=== PATIENT | male | born 1995 | race African-American/Black ===

== ENCOUNTER 2017-02-02 14:19 | Emergency (ER) | payer MEDICAID ==
[~2017-02-02] VITALS: Ht 193 cm; Wt 86.2 kg
[2017-02-02 14:24] VITALS: BP 119/69; PULSE 54; RESP 20; TEMP 98.4; O2SAT 99
--- NOTE | 2017-02-02 14:29 | NUR ---
Pt placed to ER bed 03, to bishnu, report given to ARMANDO Jewell.
--- NOTE | 2017-02-02 14:32 | NUR ---
Patient complaining of left pelvis pain x 4-5 days. Denies any trauma to the area. Denies N/V/D. No other complaints/injuries per patient of as noted. Will continue to monitor.
--- NOTE | 2017-02-02 14:42 | NUR ---
Dary valdes in ED - 02/02/17 at 1535 by [email or web address] MEDICINE WORKER at bedside examining patient.
--- NOTE | 2017-02-02 14:42 | NUR ---
EFFIE Whelan at bedside examining patient.
[2017-02-02] MEDS ORDERED: KETOROLAC TROMETHAMINE 30 MG VIAL IVP ONE (14:45)
[2017-02-02] MEDS ORDERED: NACL 0.9% 1,000 ML IV ONE (14:45)
[2017-02-02 15:06] LABS: BILIRUBIN,URINE NEGATIVE (NEGATIVE); BLOOD, URINE NEGATIVE (NEGATIVE); CLARITY/URINE CLEAR (CLEAR); COLOR,URINE YELLOW (YELLOW); GLUCOSE,URINE NEGATIVE (NEGATIVE); KETONES,URINE NEGATIVE (NEGATIVE); LEUKOCYTE ESTERASE ,URINE NEGATIVE (NEGATIVE); NITRITE, URINE NEGATIVE (NEGATIVE); PROTEIN URINE NEGATIVE (NEGATIVE); UROBILINOGEN,URINE 0.2 (0.2-1.0)
--- NOTE | 2017-02-02 15:32 | NUR ---
Patient resting quietly. No acute distress noted. Vital signs within normal range.
[2017-02-02 15:44] LABS: BASOPHILS % (AUTO) 0.6 % (0.0-2.0); EOSINOPHILS # (AUTO) 0.1 K/uL (0.0-0.4); HEMATOCRIT 44.9 % (36-54); HEMOGLOBIN 14.4 g/dL (14.0-18.0); LYMPHOCYTES # (AUTO) 3.5 K/uL (1.0-5.5); LYMPHOCYTES % (AUTO) 57.6 % (20.5-51.5); MEAN CORPUSCULAR HEMOGLOBIN 28 pg (27-31); MEAN CORPUSCULAR HGB CONC 32 % (32-36); MEAN CORPUSCULAR VOLUME 88 fL (79.0-98.0); MONOCYTES # (AUTO) 0.7 K/uL (0.0-1.0); MONOCYTES % (AUTO) 11.9 % (1.7-9.3); NEUTROPHILS # (AUTO) 1.6 K/uL (1.8-7.7); NEUTROPHILS % (AUTO) 27.9 % (40.0-70.0); RED BLOOD CELL COUNT(AUTO) 5.09 MIL/uL (4.2-6.2); RED CELL DISTRIBUTION WIDTH 11.4 % (9.0-15.0); WHITE BLOOD COUNT (AUTO) 5.9 K/uL (4.5-11.0)
[2017-02-02 15:47] LABS: PLATELET COUNT (AUTO) 368 K/uL (130-430)
[2017-02-02 15:53] LABS: CALCIUM 9.1 mg/dL (8.4-11.0); CREATININE 1.07 mg/dL (0.55-1.30); POTASSIUM 4.1 mmol/L (3.5-5.1)
[2017-02-02 15:59] LABS: TOTAL BILIRUBIN 0.4 mg/dL (0.0-1.0)
[2017-02-02] MEDS ORDERED: MAGNESIUM CITRATE 300 ML ORAL SOLUTION PO ONE (16:15)
[2017-02-02 16:26] VITALS: BP 119/69; PULSE 54; RESP 20; TEMP 98.4; O2SAT 99
--- NOTE | 2017-02-02 16:26 | NUR ---
Patient given written and verbal discharge instructions and verbalizes understanding. ER MD discussed with patient the results and treatment provided. Patient in stable condition. ID arm band removed. IV catheter removed intact and dressing applied, no active bleeding. Rx of Miralax given. Patient sent home with Magnesium Citrate. Patient educated on pain management and to follow up with PMD in 2-3 days. Pain Scale 0/10 Opportunity for questions provided and answered.
== END 2017-02-02 16:26 | disposition home or self-care (01) ==
LOC: SED 14:19
DX: K59.00 Constipation, unspecified (principal)
CPT/HCPCS: 36415; 74176; 80053; 81003; 85025; 96361; 96374; 99285; J1885; J7030

== ENCOUNTER 2018-09-11 17:56 | Emergency (ER) | payer MEDICAID ==
[~2018-09-11] VITALS: Ht 193 cm; Wt 86.2 kg
[2018-09-11 17:56] VITALS: BP_SYST 132
[2018-09-11 18:58] VITALS: BP_SYST 132
== END 2018-09-11 18:58 | disposition home or self-care (01) ==
LOC: SED 17:56
DX: F40.11 Social phobia, generalized (principal); F32.9 Major depressive disorder, single episode, unspecified
CPT/HCPCS: 99283

== ENCOUNTER 2018-11-28 02:11 | Emergency (ER) | payer MEDICAID ==
[~2018-11-28] VITALS: Ht 182.9 cm; Wt 83.9 kg
[2018-11-28 02:26] VITALS: BP_SYST 124
[2018-11-28] MEDS ORDERED: KETOROLAC TROMETHAMINE 30 MG VIAL IM ONE (02:45)
[2018-11-28] MEDS ORDERED: DIPH-TET-PERTUS Vaccine 0.5 ML VIAL (ADACEL) I.M. ONE (02:45)
[2018-11-28] MEDS ORDERED: BACITRACIN 1 GM OINT TP ONE (03:37)
[2018-11-28 03:38] VITALS: BP_SYST 122
== END 2018-11-28 03:41 | disposition home or self-care (01) ==
LOC: SED 02:11
DX: S16.1XXA Strain of muscle, fascia and tendon at neck level, initial encounter (principal); S39.012A Strain of muscle, fascia and tendon of lower back, initial encounter; S70.212A Abrasion, left hip, initial encounter; S70.211A Abrasion, right hip, initial encounter; S80.212A Abrasion, left knee, initial encounter; R03.0 Elevated blood-pressure reading, without diagnosis of hypertension; F41.9 Anxiety disorder, unspecified; F32.9 Major depressive disorder, single episode, unspecified; V89.2XXA Person injured in unspecified motor-vehicle accident, traffic, initial encounter; Y93.89 Activity, other specified; Y92.410 Unspecified street and highway as the place of occurrence of the external cause; Y99.8 Other external cause status
CPT/HCPCS: 72040; 72100; 90471; 90715; 96372; 99283; J1885

== ENCOUNTER 2019-04-19 10:17 | Emergency (ER) | payer MEDICAID ==
[~2019-04-19] VITALS: Ht 193 cm; Wt 86.2 kg
[2019-04-19 10:34] VITALS: BP_SYST 124
--- NOTE | 2019-04-19 11:05 | NUR ---
Patient to ER bed 08 for evaluation. Side rails up.
--- NOTE | 2019-04-19 11:22 | NUR ---
ER Dr. Tsang at bedside examining patient.
--- NOTE | 2019-04-19 11:24 | NUR ---
Pt moved to bed 05
--- NOTE | 2019-04-19 11:30 | NUR ---
Pt AAOx4 ambulated into ED c/o L ear pain x 1-2 weeks. Denies discharge/bleeding from site. No swelling noted. Denies taking medication for pain. No other injuries/complaints per pt/noted. Will continue to monitor.
--- NOTE | 2019-04-19 12:40 | NUR ---
Patient eloped without speaking to any staff.
== END 2019-04-19 12:40 | disposition left against medical advice (07) ==
LOC: SED 10:17
DX: H92.02 Otalgia, left ear (principal); F41.9 Anxiety disorder, unspecified
CPT/HCPCS: 99281

== ENCOUNTER 2019-08-20 21:05 | Emergency (ER) | payer MEDICAID ==
[~2019-08-20] VITALS: Ht 193 cm; Wt 81.6 kg
--- NOTE | 2019-08-20 21:10 | NUR ---
Patient to ER bed 03 to gown for evaluation. Side rails up.
--- NOTE | 2019-08-20 21:12 | NUR ---
ED Kwaw at bedside for patient evaluation.
[2019-08-20 21:15] VITALS: BP_SYST 143
--- NOTE | 2019-08-20 21:15 | NUR ---
Patient AOx4, ambulatory, presents to ED with complaint of panic attack. Patient states he was parked outside of his house and began to feel anxious. Patient reports being a lot of stress lately. Patient has hx of anxiety. Reports having a similar episode in the past for which Ativan was given and effective. Patient was in the process of a referral for psych evaluation but did not follow-up. Patient reports he does not have SI at this time.
[2019-08-20] MEDS: LORazepam 1 MG TABLET PO ONE (21:29)
--- NOTE | 2019-08-20 22:00 | NUR ---
No adverse reactions noted post medication administration. Will continue to monitor.
[2019-08-20 22:28] VITALS: BP_SYST 129
--- NOTE | 2019-08-20 22:28 | NUR ---
Patient given written and verbal discharge instructions and verbalizes understanding. ER MD discussed with patient the results and treatment provided. Patient in stable condition. ID arm band removed. no Rx given. Patient educated on pain management and to follow up with PMD. Pain Scale 0/10. Opportunity for questions provided and answered.
== END 2019-08-20 22:28 | disposition home or self-care (01) ==
LOC: SED 21:05
DX: F41.9 Anxiety disorder, unspecified (principal); R06.4 Hyperventilation
CPT/HCPCS: 99283

== ENCOUNTER 2019-10-28 22:51 | Emergency (ER) | payer MEDICAID ==
[~2019-10-28] VITALS: Ht 193 cm; Wt 81.6 kg
[2019-10-28 22:55] VITALS: BP_SYST 109
[2019-10-29 00:14] VITALS: BP_SYST 125
== END 2019-10-29 00:14 | disposition home or self-care (01) ==
LOC: SED 22:51
DX: H61.22 Impacted cerumen, left ear (principal); H60.92 Unspecified otitis externa, left ear; F41.9 Anxiety disorder, unspecified
CPT/HCPCS: 99283

== ENCOUNTER 2022-09-15 18:01 | Emergency (ER) | payer MEDICAID ==
[~2022-09-15] VITALS: Ht 193 cm; Wt 90.7 kg
[2022-09-15 18:02] VITALS: BP_SYST 109
--- NOTE | 2022-09-15 18:07 | NUR ---
Patient triaged and placed in waiting room. VSS and patient appears in no acute distress at this time. Accompanied by SELF, awaiting available bed, and MD notified of need for MSE.
--- NOTE | 2022-09-15 18:20 | NUR ---
PT STATES ON AND OFF CONSTIPATION DUE TO MEDICATION GIVEN FOR INJURY TO ABD MUSCLES. PT STATES RECTAL PAIN, SMALL AMT OF BLOOD NOTED TO TOILET PAPER WHEN WIPING, DENIES ANY INJURY OR TRAUMA TO RECTUM. PT STATES LAST NORMAL BM WAS "WEEKS AGO". STATES HE STARTED TAKING METAMUCIL YESTERDAY, BLOATING
[2022-09-15] MEDS ORDERED: KETOROLAC TROMETHAMINE 30 MG VIAL IVP ONE (20:00)
[2022-09-15] MEDS ORDERED: KETOROLAC TROMETHAMINE 60 MG/2 ML VIAL IM ONE (20:15)
[2022-09-15 20:16] LABS: BASOPHILS # (AUTO) 0.1 K/uL (0.0-0.2); BASOPHILS % (AUTO) 0.8 % (0.0-2.0); EOSINOPHILS # (AUTO) 0.1 K/uL (0.0-0.4); EOSINOPHILS % (AUTO) 0.8 % (0.0-4.0); HEMATOCRIT 40.5 % (36-54); HEMOGLOBIN 13.7 g/dL (14.0-18.0); LYMPHOCYTES # (AUTO) 2.7 K/uL (1.0-5.5); LYMPHOCYTES % (AUTO) 33.6 % (20.5-51.5); MEAN CORPUSCULAR HEMOGLOBIN 30 pg (27-31); MEAN CORPUSCULAR HGB CONC 34 % (32-36); MEAN CORPUSCULAR VOLUME 88 fL (79.0-98.0); MONOCYTES # (AUTO) 0.9 K/uL (0.0-1.0); MONOCYTES % (AUTO) 11.8 % (1.7-9.3); NEUTROPHILS # (AUTO) 4.2 K/uL (1.8-7.7); PLATELET COUNT (AUTO) 333 K/uL (130-430); RED BLOOD CELL COUNT(AUTO) 4.61 MIL/uL (4.2-6.2); RED CELL DISTRIBUTION WIDTH 12.5 % (9.0-15.0)
--- NOTE | 2022-09-15 20:27 | NUR ---
Patient to ER bed 07 to gown for evaluation. Side rails up. Report given to ARMANDO HALLMAN
[2022-09-15 20:35] LABS: CALCIUM 8.5 mg/dL (8.4-11.0); CREATININE 1.27 mg/dL (0.55-1.30)
[2022-09-15 20:40] LABS: ALBUMIN 3.9 g/dL (3.4-4.8); TOTAL BILIRUBIN 0.4 mg/dL (0.0-1.0)
--- NOTE | 2022-09-15 20:40 | NUR ---
Received report from ARMANDO Koch; assuming care of patient at this time.
--- NOTE | 2022-09-15 20:45 | NUR ---
Patient presents to ED from home with c/o rectal pain x1week. Patient reports pain 10/10 at this time. Patient A/Ox4, VSS, ambulatory, resp even and unlabored. Skin warm, dry, intact, color wnl for ethnicity. Patient states "I've been constipated for about 2 weeks now and I think it's cause I've been taking pain medications from a sports injury. I dont know but I just wanted to get checked out." ER MD Mariee made aware. NAD noted at this time.
--- NOTE | 2022-09-15 21:00 | NUR ---
ER MD Mariee at bedside examing patient.
[2022-09-15] MEDS ORDERED: IBUP-1971 PO (21:42)
[2022-09-15] MEDS ORDERED: HYDR30CR79 TP (21:42)
[2022-09-15 21:46] VITALS: BP_SYST 112
--- NOTE | 2022-09-15 21:46 | NUR ---
Patient given written and verbal discharge instructions and verbalizes understanding. ER MD discussed with patient the results and treatment provided. Patient in stable condition. ID arm band removed. Rx of HYDROCORTISONE AND MOTRIN given. Patient educated on pain management and to follow up with PMD. Pain Scale 0/10 Opportunity for questions provided and answered. Medication side effect fact sheet provided.
== END 2022-09-15 21:46 | disposition home or self-care (01) ==
LOC: SED 18:01
DX: K60.2 Anal fissure, unspecified (principal); K62.89 Other specified diseases of anus and rectum; K59.00 Constipation, unspecified; Z79.899 Other long term (current) drug therapy
CPT/HCPCS: 99285; 74176; 80053; 83690; 85025; 36415; 74018; 76376; 96372; J1885